=== PATIENT | male | born 1960 | race Caucasian/White ===

== ENCOUNTER 2023-11-12 21:37 | Emergency (ER) | payer BC, SELFPAY ==
[2023-11-12 21:39] VITALS: BP 142/89
--- NOTE | 2023-11-12 22:09 | EDRN ---
Pt says he walked into a bike rack in the dark while barefoot hitting both great toes. Pt able to bend R great toe. Pt concerned he broke the L great toe because he is unable to bend it.
--- NOTE | 2023-11-12 22:30 | ED.GENMED ---
History of Present Illness
General
Chief Complaint: Musculo-Skeletal Complaint
Source: patient
Exam Limitations: none
Time Seen by Provider: 11/12/23 22:02
Nursing documentation reviewed up to this point in time: agreed with
History of Present Illness
History of Present Illness:
pt is a 63 y/o M with h/o epilepsy
here with great toe pain b/l after accidentally stubbing his toes on a bke rack
was not wearing shoes
has some mild pain to right great toe but moderate to L great toe with limited ROM
cannot bend it
no wounds
has chronic R 1ST MTP joint swelling, non painful
no h/o gout
Past History
Past History
ED Past Medical History: Other (Seizures post accident, hemorrhoids)
ED Past Surgical History: None
Social History
Tobacco: Non-smoker
Alcohol: None
Personal:
Living: with family
Employment: Employed
Review of Systems
Review of Systems
Allergies reviewed?: Yes
All Other Systems: Not applicable
Phy Exam
Physical Exam
Physical Exam:
GENERAL: Alert , in no apparent distress, comfortable at rest
HEAD: NCAT
CV: 2+ DP PULSES B/L
NEUROLOGICAL: Alert and oriented, no focal neuro deficits, , 5/5 strength, sensation intact, ambulation slight limp right leg
SKIN: Warm and dry, no wounds
MUSCULOSKELETAL: right 1st MTP joint swelling chroniclly nontender, right great toe mildly tender but no swelling and full ROM
left great toe tenderness, specifically IPJ and not able to flex the IPJ
there is no obvious deformity
no other foot or ankle tendenress;
PSYCH: Normal and appropriate interaction.
Course
Orders/Labs/Results
Orders:
Orders
11/12/23 21:42
CR Foot - Left Min 3 Views Urgent
Comment:
Reason For Exam: pain in 1st toe
CR Foot - Right Min 3 Views Urgent
Comment:
Reason For Exam: pian, injury
11/12/23 23:41
Toes 2 Views, Left CR [CR Toe(s) Min 2 Vw Left] Urgent
Comment:
Reason For Exam: left great toe fracture reduction
Vital Signs
Initial and Last Documented VS:
Initial Vital Signs
Temp Resp BP Pulse Ox
98.4 F 14 142/89 95
11/12/23 21:39 11/12/23 21:39 11/12/23 21:39 11/12/23 21:39
Last Documented Vital Signs
Temp Pulse Resp BP Pulse Ox
98.4 F 79 16 111/85 96
11/12/23 21:39 11/13/23 00:10 11/13/23 00:10 11/13/23 00:10 11/13/23 00:10
Procedures
Digital Block
Location of injection for digital block: base of digit
Indiction for Digital Block: orthopedic procedure
Was sensory exam normal prior to exam?: intack pin prick
Type of anesthesia: 1% Lidocaine w/o EPI
Complications: none- good anesthesia
MDM/Problems Addressed
Differential Diagnosis Includes:
fracture/dislocatino of toe; contusion
MDM/Problems Addressed:
63 y/o M
jammed both feet and has more pain L great toe and than R great toe
unable to flex L great toe
xray has distal phalanx fx intraarticular with dorsal displacement dislocation
digital block and reduction of the toe
improved alignment on xray
sandra tape
cast shoe
f/u ortho
*Critical Care Note
Total Time (30-74mins, 75-104mins- exclusive of procedures): Not Applicable
ED Attending Note
-
Portions of this chart may have been created with voice recognition software.� Occasional wrong word or��sound alike� substitutions may have occurred due to the inherent limitations of voice recognition software.
Discharge Plan
Departure
Patient Disposition: Home (Routine Discharge)
Date of Disposition: 11/13/23
Time of Disposition: 00:02
Patient with high blood pressure during this ER visit?: No
Condition: Fair
Discharge Problem:
Fracture of toe, Dislocation of great toe, left, closed
Instructions: Toe Fracture ED
Prescriptions:
No Action
lamotrigine 100 MG tablet
100 mg PO BID
cholecalciferol (vitamin D3) [Vitamin D3] 25 mcg (1,000 unit) Capsule
25 mcg PO DAILY
rosuvastatin 20 mg Tablet
20 mg PO HS
Referrals:
Gennaro Squires MD [Family Provider] -
Eyal Paz DPM [Active] - Follow up in 1 week (ORTHO)
Activity Restrictions/Additional Instructions:
YOU BROKE YOUR GREAT TOE
WEAR THE SANDRA TAPE AN DHARD SOLE SHOE
YOU CAN TAKE THE SHOE OFF TO SLEEP
YOU CAN REDO THE SANDRA TAPE AFTER SHOWERING
FOLLOW UP WITH ORTHOEPDICS
RETURN FO RANY CONCERNS
ICE OFF AND ON, MOTRIN OR TYLENOL FOR PAIN NEEDED
Interventions
Interventions:
*Risk Screen - Suicide Last Done: 11/12/23 21:39
*General Assessment Last Done: 11/12/23 21:39
*Neglect/Abuse Screening Last Done: 11/12/23 21:39
*ED COVID-19 Vaccine History Last Done: 11/12/23 22:05
*Nursing Disposition Last Done: 11/13/23 00:24
ED-Musculoskeletal Assessment Last Done: 11/12/23 22:08
Discharge Date and Time
Discharge Date/Time: 11/13/23 00:24
Print Language: MOLDOVAN
[2023-11-13 00:10] VITALS: BP 111/85
== END 2023-11-13 00:24 | disposition home or self-care (01) ==
LOC: EMR 21:37
PROVIDERS: EMERGENCY PHYSICIAN Student in an Organized Health Care Education/Training Program; FAMILY PHYSICIAN Family Medicine
DX: S92.422A Displaced fracture of distal phalanx of left great toe, initial encounter for closed fracture (principal); S93.105A Unspecified dislocation of left toe(s), initial encounter; M25.474 Effusion, right foot; W22.09XA Striking against other stationary object, initial encounter; G40.909 Epilepsy, unspecified, not intractable, without status epilepticus
CPT/HCPCS: 64450; 99284; 73630; 73660

== ENCOUNTER 2024-01-12 15:41 | Emergency (ER) | payer BC, SELFPAY ==
[2024-01-12 15:44] VITALS: BP 144/95
[2024-01-12 16:00] LABS: % Basophils 0.8 % (0-2); % Immature Granulocytes 0.3 % (0-0.5); % Lymphocytes 35.1 % (20.5-51.1); % Monocytes 9.5 % (1.7-9.3); % Neutrophils 54.3 % (42.2-75.2); Absolute Basophils 0.1 10^3/uL (0-0.2); Absolute Lymphocytes 2.3 10^3/uL (1.2-3.4); Absolute Monocytes 0.6 10^3/uL (0.1-0.6); Absolute Neutrophils 3.5 10^3/uL (1.4-6.5); Hematocrit 48.6 % (39.0-52.0); Hemoglobin 17.5 g/dL (13.0-18.0); Mean Corpuscular Hgb 32.7 pg (27.0-31.0); Mean Corpuscular Volume 90.8 fL (80.0-94.0); Mean Platelet Volume 9.4 fL (7.4-10.4); Nucleated Red Blood Cells % 0 % (-); Platelet Count 187 10^3/uL (130-400); Red Blood Cell Count 5.35 10^6/uL (4.70-6.10); Red Cell Dist. Width 12.3 % (11.5-14.5); White Blood Cell Count 6.5 10^3/uL (4.8-10.8)
[2024-01-12 16:18] LABS: ALT (SGPT) 27 U/L (0-50); AST (SGOT) 34 U/L (17-59); Alkaline Phosphatase 45 U/L (38-126); Blood Urea Nitrogen 31 mg/dl (9-20); Calcium 11.2 mg/dl (8.4-10.2); Carbon Dioxide 27 mmol/L (22-30); Chloride 104 mmol/L (98-107); Glucose 98 mg/dl (70-99); Potassium 4.9 mmol/L (3.5-5.1); Sodium 141 mmol/L (135-145); Total Bilirubin 0.8 mg/dl (0.2-1.3); Total Protein 7.5 g/dl (6.3-8.2); eGFR > 60.00
[2024-01-12 16:19] LABS: D-Dimer < 0.27 ug/mlFEU (0.00-0.50)
[2024-01-12 17:06] VITALS: BMI 26.9
[2024-01-12 17:07] VITALS: BP 137/91
[2024-01-12 17:41] LABS: NT-proBNP < 20.0 pg/ml
--- NOTE | 2024-01-12 18:00 | ED.GENMED ---
History of Present Illness
General
Chief Complaint: Breathing Problem
Time Seen by Provider: 01/12/24 16:50
History of Present Illness
History of Present Illness:
63-year-old male with history of GERD and hyperlipidemia presenting to the emergency department for progressive dyspnea on exertion. Patient reports symptoms for the past 1 to 2 months, feels has been worsening. Denies any associated chest pain.
Denies fever or cough. Does note that he has had increased GERD at nighttime. Does report strong family history of cardiac disease. Denies lower extremity edema. Denies any recent illness or sick contacts. Denies additional acute medical
complaints
Past History
Past History
ED Past Medical History: Other (Seizures post accident, hemorrhoids)
ED Past Surgical History: None
Social History
Tobacco: Non-smoker
Alcohol: None
Personal:
Living: with family
Employment: Employed
Phy Exam
Physical Exam
Physical Exam:
General: Well-appearing, no clinical signs of dehydration, nontoxic and in no acute distress
HEENT: protecting airway
Neck: appears supple
CV: Normal heart rate, regular rhythm
Resp: No accessory muscle use, no increased work of breathing, lungs clear to auscultation bilaterally
Abd: Soft and non-distended, no tenderness to palpation, normal bowel sounds
Extremities: No deformities, no swelling, no erythema
Neuro: alert, no focal neurologic deficit
: deferred
Rectal: deferred
Psych: Normal affect
Skin: Intact
Scores
Heart Failure Risk
Heart Failure Risk Score: Not Applicable
Course
Orders/Labs/Results
Orders:
Orders
01/12/24 15:45
Electrocardiogram (*1) Urgent
Reason for Study: Shortness of Breath
EKG- Treatment ONCE
01/12/24 15:53
Complete Blood Count/With Diff Urgent
Comprehensive Metabolic Panel Urgent
D-Dimer Urgent
NT-proBNP Urgent
Comment: ADD ON
01/12/24 17:16
Add On- LAB Urgent
Tests Added?: BNP
01/12/24 17:21
CR Chest - 2 Views Urgent
Comment:
Reason For Exam: PEREZ
01/12/24 18:42
CT Chest Angio W/wo Iv Contras Urgent
Comment:
Reason For Exam: dyspnea on exertion
Abnormal Lab Results
01/12/24
15:53
MCH 32.7 H pg
(27.0-31.0)
Monocytes % 9.5 H %
(1.7-9.3)
BUN 31 H mg/dl
(9-20)
Calcium 11.2 H mg/dl
(8.4-10.2)
01/12/24 15:53
01/12/24 15:53
Vital Signs
Initial and Last Documented VS:
Initial Vital Signs
Temp Pulse Resp Pulse Ox
98.5 F 94 16 97
01/12/24 15:43 01/12/24 15:43 01/12/24 15:43 01/12/24 15:43
Last Documented Vital Signs
Temp Pulse Resp BP Pulse Ox
98.5 F 81 17 127/81 96
01/12/24 15:43 01/12/24 19:30 01/12/24 19:30 01/12/24 19:00 01/12/24 19:30
MDM/Problems Addressed
MDM/Problems Addressed:
63-year-old male presenting to the emergency department for dyspnea on exertion for the past month. Vital signs are normal.
On exam patient is well-appearing, no acute distress or discomfort, no respiratory distress. EKG obtained on patient's arrival, notes family history of cardiac disease, nonischemic, and patient currently without any chest pain. Lower suspicion for
ACS. CHF is a consideration, however no signs of volume overload, no lower extremity edema, no JVD. Infection is a consideration, afebrile and nontoxic. Patient had laboratory no assessment, undetectable troponin and D-dimer, so PE is less
likely. Will add BNP and chest x-ray imaging.
19:00 -x-ray shows elevated hemidiaphragm, suspected to be incidental finding. No signs of fluid overload, normal BNP. Given patient's symptoms, plan for CT imaging for out aortic pathology or additional acute pathology.
20:30 -CT without significant acute process. Again patient remains comfortable and hemodynamically stable, feel stable for discharge, however with close interval follow-up with prepress technician for potential stress testing and echo. Strict return
precautions were communicated to patient and at bedside who verbalized understanding
*EKG
Interpreted by ED Provider?: Yes
EKG Intrepretation Date: 01/12/24
EKG Intrepretation Time: 18:09
Interpretation: normal
Comparison EKG: no changes (06/05/14)
Heart Rate: 73
Rate: normal
Rhythm: sinus
[place]: normal axis
Interval: normal interval
QRS Pattern: normal QRS
Ischemia: no ischemia
*Critical Care Note
Total Time (30-74mins, 75-104mins- exclusive of procedures): Not Applicable
ED Attending Note
-
Portions of this chart may have been created with voice recognition software.� Occasional wrong word or��sound alike� substitutions may have occurred due to the inherent limitations of voice recognition software.
Discharge Plan
Departure
Patient Disposition: Home (Routine Discharge)
Date of Disposition: 01/12/24
Time of Disposition: 20:34
Patient with high blood pressure during this ER visit?: No
Condition: Good
Discharge Problem:
PEREZ (dyspnea on exertion)
Instructions: Shortness of Breath (Dyspnea) (DC)
Prescriptions:
No Action
lamotrigine 100 MG tablet
100 mg PO BID
cholecalciferol (vitamin D3) [Vitamin D3] 25 mcg (1,000 unit) Capsule
25 mcg PO DAILY
rosuvastatin 20 mg Tablet
20 mg PO HS
Referrals:
Gennaro Squires MD [Family Provider] -
Roby Macias MD [Active] -
Activity Restrictions/Additional Instructions:
You were seen in the emergency department for shortness of breath
You were found to have a normal EKG, blood work, and CT imaging of your chest. We are recommending that you follow-up with a prepress technician for further assessment including possible stress test and ultrasound of your heart
Please follow-up closely with your primary care physician.
Return to the emergency department for any worsening of your symptoms, or any development of chest pain, difficulty breathing, abdominal pain with persistent vomiting and inability to tolerate food or liquid by mouth (concern for dehydration),
weakness, headache or confusion, fever greater than 100.4, or any additional symptoms that are concerning to you.
Thank you for choosing [facility].
Interventions
Interventions:
*Risk Screen - Suicide Last Done: 01/12/24 15:44
*General Assessment Last Done: 01/12/24 17:08
*Neglect/Abuse Screening Last Done: 01/12/24 15:44
ED- Fall Risk Assessment Last Done: 01/12/24 17:13
*ED COVID-19 Vaccine History Last Done: 01/12/24 17:08
ED- Cardiac Assessment Last Done: 01/12/24 17:08
ED- Pulmonary Assessment Last Done: 01/12/24 17:08
Discharge Date and Time
Print Language: TRINIDADIAN
[2024-01-12 18:05] VITALS: BP 142/91
[2024-01-12 19:00] VITALS: BP 127/81
[2024-01-12 20:54] VITALS: BP 135/95
== END 2024-01-12 21:17 | disposition home or self-care (01) ==
LOC: EMR 15:41
PROVIDERS: EMERGENCY PHYSICIAN Student in an Organized Health Care Education/Training Program; FAMILY PHYSICIAN Family Medicine
DX: R06.09 Other forms of dyspnea (principal); K21.9 Gastro-esophageal reflux disease without esophagitis; E78.00 Pure hypercholesterolemia, unspecified; I25.10 Atherosclerotic heart disease of native coronary artery without angina pectoris; Z82.49 Family history of ischemic heart disease and other diseases of the circulatory system; Z87.19 Personal history of other diseases of the digestive system
CPT/HCPCS: 99284; 71046; 71275; 80053; 83880; 85025; 85379; 93005; Q9967

== ENCOUNTER → 2024-01-30 09:00 | Outpatient (REF) | payer BC, SELFPAY | LOC: RCS 09:00 | PROVIDERS: ATTENDING PHYSICIAN Internal Medicine Cardiovascular Disease; FAMILY PHYSICIAN Family Medicine | DX: R06.02 Shortness of breath (principal); R06.09 Other forms of dyspnea | CPT/HCPCS: 93306 ==

== ENCOUNTER → 2024-02-01 11:42 | Outpatient (REF) | payer BC, SELFPAY | LOC: DHCBC/DCA 11:42 | PROVIDERS: ATTENDING PHYSICIAN Internal Medicine Cardiovascular Disease; FAMILY PHYSICIAN Family Medicine | DX: R06.02 Shortness of breath (principal); R06.09 Other forms of dyspnea; Z82.49 Family history of ischemic heart disease and other diseases of the circulatory system; I25.119 Atherosclerotic heart disease of native coronary artery with unspecified angina pectoris | CPT/HCPCS: 78452; 93017; A9500 ==

== ENCOUNTER → 2024-04-03 17:31 | Outpatient (REF) | payer BC, SELFPAY | LOC: RAD 17:31 | PROVIDERS: ATTENDING PHYSICIAN Internal Medicine Critical Care Medicine; FAMILY PHYSICIAN Family Medicine | DX: J98.6 Disorders of diaphragm (principal) | CPT/HCPCS: 71046 ==

== ENCOUNTER → 2024-04-08 14:37 | Outpatient (REF) | payer BC, SELFPAY | LOC: RAD 14:37 | PROVIDERS: ATTENDING PHYSICIAN Internal Medicine Critical Care Medicine; FAMILY PHYSICIAN Family Medicine | DX: J98.6 Disorders of diaphragm (principal) | CPT/HCPCS: 71046; 76000 ==

== ENCOUNTER → 2024-07-30 07:02 | Outpatient (REF) | payer BC, SELFPAY | LOC: MRI 07:02 | PROVIDERS: ATTENDING PHYSICIAN Internal Medicine Critical Care Medicine; FAMILY PHYSICIAN Family Medicine | DX: J98.6 Disorders of diaphragm (principal) | CPT/HCPCS: 70030; 72141 ==

== ENCOUNTER 2024-12-07 13:05 | Emergency (ER) | payer BC, SELFPAY ==
[2024-12-07 13:07] VITALS: BP 154/112
--- NOTE | 2024-12-07 13:28 | ED.GENMED ---
History of Present Illness
<Roby Velasco MD, Resident - Last Filed: 12/07/24 14:16>
General
Chief Complaint: Head Injury
Source: patient and family
Time Seen by Provider: 12/07/24 13:13
History of Present Illness
History of Present Illness:
Patient is a 62-year-old male with PMH of seizure disorder well-controlled on lamotrigine who presents to the [place] ED for head injury. Earlier today, patient tripped while doing yard work and struck his left side of forehead on the edge of a
plastic trash can, which caused a laceration on his forehead. The fall was not witnessed, but the patient immediately went inside to the attention of his . Bleeding was subsequently controlled. No blood thinners. Patient remembers the entire
episode. No loss of consciousness or striking his head on the ground. Patient is certain the fall was mechanical in nature, denying dizziness or syncope. Patient broke his fall with his hands. No pain, numbness, weakness, or reduced ROM in upper
extremities bilaterally. No weakness, numbness, vision changes, headache, neck pain, or slurred speech.
Past History
<Roby Velasco MD, Resident - Last Filed: 12/07/24 14:16>
Past History
ED Past Medical History: Other (Seizures post accident, hemorrhoids)
ED Past Surgical History: None
Social History
Tobacco: Non-smoker
Alcohol: None
Personal:
Living: with family
Employment: Employed
Review of Systems
<Roby Velasco MD, Resident - Last Filed: 12/07/24 14:16>
Review of Systems
Constitutional: Denies fever, fatigue or chills
Cardiac: Denies chest pain
ABD/GI: Denies abdominal pain
Musculoskeletal: Denies joint pain, joint swelling, edema or neck pain
Neurological: Denies dizzy, headache, weakness or numbness
Hematologic/Lymphatic: Reports bleeding (Immediately after fall, now well-controlled)
Phy Exam
<Roby Velasco MD, Resident - Last Filed: 12/07/24 14:16>
Physical Exam
Physical Exam:
General: NAD. Sitting up in bed. Conversant.
Neuro: A&O x 3. No focal deficits. Motor, sensory intact. CN II through XII intact. No dysmetria.
Skin: Approximately 7 cm long, 1 cm deep laceration on left forehead with smooth edges
CV: RRR. S1, S2 noted.
Pulm: CTAB. No wheezes or crackles.
GI: Soft, nontender. Nondistended.
Course
<Roby Velasco MD, Resident - Last Filed: 12/07/24 14:16>
Vital Signs
Initial and Last Documented VS:
Initial Vital Signs
Temp Pulse Resp BP Pulse Ox
97.8 F 108 20 154/112 95
12/07/24 13:07 12/07/24 13:07 12/07/24 13:07 12/07/24 13:07 12/07/24 13:07
Last Documented Vital Signs
Temp Pulse Resp BP Pulse Ox
97.8 F 108 20 154/112 95
12/07/24 13:07 12/07/24 13:07 12/07/24 13:07 12/07/24 13:07 12/07/24 13:28
<David Hill MD - Last Filed: 12/07/24 14:14>
Vital Signs
Initial and Last Documented VS:
Initial Vital Signs
Temp Pulse Resp BP Pulse Ox
97.8 F 108 20 154/112 95
12/07/24 13:07 12/07/24 13:07 12/07/24 13:07 12/07/24 13:07 12/07/24 13:07
Last Documented Vital Signs
Temp Pulse Resp BP Pulse Ox
97.8 F 108 20 154/112 95
12/07/24 13:07 12/07/24 13:07 12/07/24 13:07 12/07/24 13:07 12/07/24 13:28
Procedures
<David Hill MD - Last Filed: 12/07/24 14:14>
Laceration Closure
Middle Forehead:
Status of Wound: clean
Size of Wound in cm: 7
Description of Wound Edges: sharp
Preparation: cleaned with SurClens
Anesthesia: 1% Lidocaine with epi
Revision/Debridement: routine- no revision
Type of Closure: single layer closure
Skin Closure Material: 6-0 nylon
Number of sutures: 9
<Roby Velasco MD, Resident - Last Filed: 12/07/24 14:16>
MDM/Problems Addressed
Differential Diagnosis Includes:
Forehead laceration
Concussion
Wrist fracture
Intracranial bleed
MDM/Problems Addressed:
Assessment: Patient is a 64-year-old male with PMH of seizure disorder who presented to the [place] ED following a mechanical fall earlier today that caused him to strike his left forehead onto the edge of a plastic trash can, causing a
laceration on his left forehead. Patient stopped his fall to the ground with his hands. Neurological exam is unremarkable, and his upper extremities have full ROM, no pain, no swelling, no erythema, and minimal TTP. Minimal concern for
intracranial bleed or fractures given unremarkable neurological and upper extremity musculoskeletal exams.
Plan:
#Forehead laceration
Laceration repair
No imaging warranted at this time
<Roby Velasco MD, Resident - Last Filed: 12/07/24 14:16>
*Pulse Oximetry
SaO2: 95
Oxygen Mode of Delivery: Room air
Patient hypoxic: no
*Critical Care Note
Total Time (30-74mins, 75-104mins- exclusive of procedures): Not Applicable
ED Attending Note
<Roby Velasco MD, Resident - Last Filed: 12/07/24 14:16>
-
Portions of this chart may have been created with voice recognition software.� Occasional wrong word or��sound alike� substitutions may have occurred due to the inherent limitations of voice recognition software.
<David Hill MD - Last Filed: 12/07/24 14:14>
ED Attending Note
Patient seen and examined by attending physician: Yes
ED Attending Note:
Patient presents to ED secondary to forehead laceration, which occurred shortly prior to arrival, when he was hit by his trash can that he was rolling, after he lost balance. Denies headache. Denies neck pain. Denies loss of sensation or
weakness. Denies dizziness. Denies nausea or vomiting. Patient does not have any blood thinning medications. Patient states that his tetanus vaccination is up-to-date.
Physical Exam
General: no apparent distress, not acutely ill. afebrile
Head: an approx 7 cm horizontal laceration over mid-forehead, without active pulsatile bleeding
Neck: supple. normal range of motion.
Neuro: alert and oriented x 3. no focal neurological deficits
Skin: no rash
Psychiatric: well kept. interactive and cooperative
Extremities: no edema. no calf tenderness.
History and exam consistent with superficial forehead laceration. In light of low end of mechanism, without any neurological deficit nor with patient taking any blood thinner medication, will withhold any imaging studies. Patient will follow-up
with his PCP for reevaluation, including suture removal in 7 to 10 days.
Discharge Plan
Departure
Patient Disposition: Home (Routine Discharge)
Date of Disposition: 12/07/24
Time of Disposition: 14:12
Patient with high blood pressure during this ER visit?: Yes
Condition: Good
Covid-19: Not Applicable
Discharge Problem:
Laceration, Head injury
Instructions: Head Injury in Adults (DC), Laceration Repair With Stitches (DC), BLOOD PRESSURE
Prescriptions:
No Action
lamotrigine 100 MG tablet
100 mg PO BID
cholecalciferol (vitamin D3) [Vitamin D3] 25 mcg (1,000 unit) Capsule
25 mcg PO DAILY
rosuvastatin 20 mg Tablet
20 mg PO HS
Referrals:
Natividad Barrett MD [Family Provider, Family Practice]
Activity Restrictions/Additional Instructions:
Follow-up with PCP for suture removal in 7 to 10 days
Return to ED if worsening pain, vomiting, weakness, or numbness
Interventions
Interventions:
*Risk Screen - Suicide Last Done: 12/07/24 13:07
*General Assessment Last Done: 12/07/24 13:07
*Neglect/Abuse Screening Last Done: 12/07/24 13:07
ED- Neurological Assessment Last Done: 12/07/24 13:13
ED-Skin Assessment Last Done: 12/07/24 13:13
Discharge Date and Time
Print Language: BAHAMIAN
[2024-12-07 14:21] VITALS: BP 126/90
== END 2024-12-07 14:25 | disposition home or self-care (01) ==
LOC: EMR 13:05
PROVIDERS: EMERGENCY PHYSICIAN Emergency Medicine; FAMILY PHYSICIAN Family Medicine
DX: S01.81XA Laceration without foreign body of other part of head, initial encounter (principal); W01.198A Fall on same level from slipping, tripping and stumbling with subsequent striking against other object, initial encounter; Y93.H9 Activity, other involving exterior property and land maintenance, building and construction; R03.0 Elevated blood-pressure reading, without diagnosis of hypertension; G40.909 Epilepsy, unspecified, not intractable, without status epilepticus; Z79.899 Other long term (current) drug therapy
CPT/HCPCS: 99282; 12014